=== PATIENT | male | born 1980 | race Two or more races ===

== ENCOUNTER 2023-01-29 14:23 | Emergency (ER) | payer OTHER ==
[~2023-01-29] VITALS: Ht 182.9 cm; Wt 106.1 kg
[2023-01-29 17:22] LABS: URINE APPEARANCE Clear; URINE BILIRRUBIN Negative (NEGATIVE); URINE BLOOD Negative; URINE COLOR Yellow; URINE GLUCOSE Negative (NEGATIVE); URINE LEUKOCYTE Trace; URINE NITRATE Negative; URINE PROTEIN 30 (NEGATIVE)
[2023-01-29 17:25] LABS: HEMATOCRIT 45.9 % (39.0-48.0); HEMOGLOBIN 16.1 g/dL (13-16.00); MEAN CELL VOLUME 92.8 fL (80.0-100.00); MEAN CORPUSCULAR HEMOGLOBIN 32.6 pg (27.00-32.0); MEAN CORPUSCULAR HGB CONC 35.1 g/dl (32.0-36.0); PLATELET COUNT 294 K/uL (150-450); RED BLOOD COUNT 4.95 M/uL (4.00-6.00); RED CELL DISTRIBUTION WIDTH 13.5 % (11.5-14.5)
[2023-01-29 17:26] LABS: URINE BACTERIA 16.3 uL (0.0-1933); URINE EPITHELIAL CELLS 4.4 uL (0.0-38.8); URINE RBC 21.4 uL (0.0-20.8); URINE WBC 2.7 uL (0.0-23.2)
[2023-01-29 18:40] LABS: INR 0.95; PARTIAL THROMBOPLASTIN TIME 24.4 SECONDS (22.0-34.0)
[2023-01-29 18:41] LABS: CALCIUM 9.3 mg/dL (8.5-10.1); CREATININE SERUM 0.63 mg/dL (0.70-1.30); POTASSIUM 4.11 mEq/L (3.5-5.1)
[2023-01-29] MEDS ORDERED: PEPCID AC20 MG PO (19:03)
[2023-01-29] MEDS ORDERED: INTESTINEX680 M1 PO (19:03)
[2023-01-29] MEDS ORDERED: ZOFRAN8 MG PO (19:03)
[2023-01-29] MEDS ORDERED: DICY20TA PO (19:03)
== END 2023-01-29 19:08 | disposition home or self-care (01) ==
LOC: ER 14:23
PROVIDERS: General Practice
DX: K52.89 Other specified noninfective gastroenteritis and colitis (principal)